=== PATIENT | female | born 1990 | race Caucasian/White ===

== ENCOUNTER 2018-10-16 11:58 | Inpatient (IN) | payer BC ==
[2018-10-16] MEDS ORDERED: BUTORPHANOL TARTRATE 1 MG/ML VIAL IVPB ONE (12:35)
[2018-10-16] MEDS ORDERED: PROMETHAZINE HCL 25 MG/1 ML VIAL IVPUSH ONE (12:35)
--- NOTE | 2018-10-16 12:39 | HP ---
Past Medical History - Admission Chief Complaint: Here for labor induction per [facility] recommendations. History of Present Illness: 28 y/o with SIUP at 38.1 weeks sent up from [facility] office for induction of labor due to IUGR. otherwise uncomplicated. Pt admits to smoking Marijuana until 2 months ago. History Source: Patient, Medical Record - Past Medical History Cardiovascular: No: HTN, MA Pulmonary: No: Asthma, COPD Gastrointestinal: No: Constipation, GERD Hepatobiliary: No: Hepatitis B, Hepatitis C ...: 1 ...Para: 0 ...LMP: 01/22/19 ... Weeks Gestation by Dates: 38.1 ...EDC by Dates: 10/29/18 ...EDC by Sono: 10/29/18 Heme/Onc: No: Anemia Infectious Disease: No: HIV, MRSA, STD's Psych: No: Anxiety, Bipolar, Depression Endocrine: No: Diabetes Mellitus - Past Surgical History Past Surgical History: Yes: None Hx Myomectomy: No Hx Transabdominal Cerclage: No - Alcohol/Substance Use History of Substance Use: reports: Marijuana - Social History Usual Living Arrangement: Yes: With Significant Other ADL: Independent History of Recent Travel: No Home Medications - Allergies Allergies/Adverse Reactions: Allergies Allergy/AdvReac Type Severity Reaction Status Date / Time No Known Allergies Allergy Verified 10/01/18 12:20 - Home Medications Home Medications: Ambulatory Orders Ferrous Sulfate 1 tab PO DAILY 10/01/18 One Daily Tablet 1 tablet PO DAILY 10/01/18 Review of Systems - Review of Systems Constitutional: reports: No Symptoms Eyes: reports: No Symptoms HENT: reports: No Symptoms Neck: reports: No Symptoms Cardiovascular: reports: No Symptoms Respiratory: reports: No Symptoms Gastrointestinal: reports: No Symptoms Genitourinary: reports: No Symptoms Breasts: reports: No Symptoms Reported Musculoskeletal: reports: No Symptoms Integumentary: reports: No Symptoms Neurological: reports: No Symptoms Endocrine: reports: No Symptoms Hematology/Lymphatic: reports: No Symptoms Psychiatric: reports: No Symptoms Physical Exam - Maternity Constitutional: Yes: Well Nourished, No Distress, Calm Eyes: Yes: EOM Intact HENT: Yes: Atraumatic Neck: Yes: Supple Cardiovascular: Yes: Regular Rate and Rhythm Lungs: Clear to auscultation Breast(s): Yes: WNL - Abdominal Exam/OB Fundal Height: 37 Number of Fetuses: Single Presentation: Vertex Contractions: No Category: I Accelerations: Uniform Decelerations: None - Vaginal Exam/OB Vaginal Bleediing: No Dilatation (cm): 1 Effacement (%): 50 Amniotic Membrane Status: Intact Presentation: Vertex/Position Station: -3 - Physical Exam Psychiatric: Yes: Alert, Oriented Problem List - Problems (1) Intrauterine growth restriction affecting care of mother Code(s): O36.5990 - MATERN CARE FOR OTH OR SUSP POOR FETL GRTH, UNSP TRI, UNSP Qualifiers: Fetus number: single or unspecified fetus Trimester: third trimester Qualified Code(s): O36.5930 - Maternal care for other known or suspected poor growth, third trimester, not applicable or unspecified Assessment/Plan Pt admitted for monitoring plan for cervidil induction - desires to wait until family arrives to start induction, will do close monitoring until that time pt aware of plan consents signed
[2018-10-16] MEDS ORDERED: DINOPROSTONE 10 MG VAGINAL SUPPOSITORY VG ONE (12:54)
[2018-10-16 13:26] LABS: BASO % 0.2 % (0-2.0); EOS % 0.8 % (0-4.5); HEMATOCRIT 37.5 % (32.4-45.2); LYMPH % 24.4 % (8-40); MCH 33.9 pg (25.7-33.7); MCHC 34.5 g/dl (32.0-36.0); MEAN CELL VOLUME 98.1 fl (80-96); MEAN PLT VOLUME 8.5 fl (7.5-11.1); MONO % 6.6 % (3.8-10.2); PLATELET COUNT 277 K/MM3 (134-434); RBC 3.83 M/mm3 (3.60-5.2); RDW 13.4 % (11.6-15.6); WHITE BLOOD COUNT 6.9 K/mm3 (4.0-10.0)
[2018-10-16] MEDS ORDERED: DEXTROSE 5%-LACTATED RINGERS 500 ML IV SCH (13:30)
[2018-10-16 13:40] VITALS: BMI 30.7
[2018-10-16 13:42] LABS: INR 0.92 (0.83-1.09); PROTHROMBIN TIME (PATIENT) 10.9 SEC (9.7-13.0)
[2018-10-16 13:44] LABS: ACTIVATED PTT 29.1 SECONDS (25.2-36.5)
[2018-10-16 13:47] LABS: BLOOD UREA NITROGEN 8.4 mg/dL (7-18); CALCIUM 8.8 mg/dL (8.5-10.1); CREATININE 0.6 mg/dL (0.55-1.3); POTASSIUM 4.4 mmol/L (3.5-5.1)
[2018-10-16] MEDS: DEXTROSE 5%-LACTATED RINGERS 1,000 ML IV SCH ×2 (14:00→22:15)
[2018-10-16] MEDS ORDERED: TUBERCULIN PPD 5 TU/0.1ML SYRINGE (IN PATIENT USE ONLY) ID ONE (15:00)
[2018-10-17] MEDS ORDERED: DINOPROSTONE 10 MG VAGINAL SUPPOSITORY VG ONE (00:45)
[2018-10-17] MEDS ORDERED: diphenhydrAMINE HCL 25 MG CAPSULE (FP) PO ONE (03:26)
[2018-10-17] MEDS: diphenhydrAMINE HCL 25 MG CAPSULE (FP) PO SCH ×2 (03:30→23:05)
[2018-10-17] MEDS ORDERED: ACETAMINOPHEN 325 MG TABLET (FP) ONE (04:13)
[2018-10-17] MEDS ORDERED: ACETAMINOPHEN 325 MG TABLET (FP) PO ONE (04:30)
[2018-10-17] MEDS ORDERED: BUTORPHANOL TARTRATE 2 MG/ML VIAL ONE (05:00)
[2018-10-17] MEDS ORDERED: PROMETHAZINE HCL 25 MG/1 ML VIAL ONE (05:00)
[2018-10-17] MEDS: DEXTROSE 5%-LACTATED RINGERS 1,000 ML IV SCH ×3 (05:15→18:53)
--- NOTE | 2018-10-17 05:47 | PN ---
Ante-Partal Exam - Subjective Vital Signs: Vital Signs Temperature 99.9 F H 10/17/18 05:00 Pulse Rate 64 10/17/18 04:00 Respiratory Rate 18 10/17/18 04:00 Blood Pressure 136/77 10/17/18 04:00 O2 Sat by Pulse Oximetry (%) Bleeding: No Headache: No Visual changes: No Right upper quadrant pain: No - Contractions Contractions: No - Exam during Labor Heart Rate: 130 Variability: Moderate Category: I Monitor Accelerations: Present Monitor Decelerations: None Exam: Vaginal Dilatation (cm): 1 Effacement (%): 50 Amniotic Membrane Status: Intact Presentation: Vertex Station: -3 - Assessment/Plan Assessment/Plan: Cervidil placed in posterior fornix cervix 1cm dilated will re evaluate in 12 hours
[2018-10-17] MEDS ORDERED: OXYTOCIN 30 UNITS in 0.9% NS 30 UNIT/500 ML INFUS.BAG IVPB SCH (11:00)
[2018-10-17] MEDS ORDERED: OXYTOCIN 30 UNITS in 0.9% NS 30 UNIT/500 ML INFUS.BAG IVPB ONE (11:00)
[2018-10-17] MEDS ORDERED: BUTORPHANOL TARTRATE 2 MG/ML VIAL IVPUSH PRN (11:03)
--- NOTE | 2018-10-17 11:03 | PN ---
Ante-Partal Exam - Subjective Subjective: Pt doing well no pain does not desire epidural Vital Signs: Vital Signs Temperature 98.1 F 10/17/18 10:00 Pulse Rate 59 L 10/17/18 10:00 Respiratory Rate 20 10/17/18 10:00 Blood Pressure 142/69 10/17/18 10:00 O2 Sat by Pulse Oximetry (%) Bleeding: No Headache: No Visual changes: No Right upper quadrant pain: No - Contractions Contractions: No Regularity: Irritability Intensity: Mild Monitor Mode: External - Exam during Labor Heart Rate: 155 Variability: Moderate Heart Rate Location: [facility] Category: I Monitor Accelerations: Present Monitor Decelerations: None Exam: Vaginal Dilatation (cm): 2 Effacement (%): 70 Amniotic Membrane Status: Intact Presentation: Vertex Station: -1 - Intrapartum Hemorrhage Risk Medium Risk Factors: None High Risk Factors: None Risk Score: 0 Risk Level: Low Risk - Assessment/Plan Assessment/Plan: iup @ 38.2 week Cat 1 IUGR sp cervidil -had prolong dec tracing cat 1 - pt and mother ok for pitocin Plan Advised pitocin due to favorable cervix and Cat 1 tracing stadol prn
[2018-10-17] MEDS ORDERED: PROMETHAZINE HCL 25 MG/1 ML VIAL IVPUSH PRN (11:04)
[2018-10-17] MEDS ORDERED: NALOXONE HCL 0.4 MG/ML VIAL IVPUSH PRN (18:57)
[2018-10-17] MEDS ORDERED: FENTANYL/BUPIVACAINE/NS/PF - PCEA - 50 ML DISP.SYRIN EP ONE (18:59)
[2018-10-17] MEDS ORDERED: BUPIVACAINE HCL/PF 0.25% (2.5MG/ML) 10 ML VIAL ONE (18:59)
[2018-10-17] MEDS ORDERED: ELECTROLYTE-148 SOLN 1,000 ML IV SCH (19:00)
[2018-10-17] MEDS ORDERED: FENTANYL/BUPIVACAINE/NS/PF - PCEA - 50 ML DISP.SYRIN EP SCH (19:00)
[2018-10-17] MEDS ORDERED: OXYTOCIN 20 UNITS in 0.9% NS 20 UNIT/1,000 ML INFUS.BAG IV ONE (19:30)
[2018-10-17] MEDS ORDERED: LIDOCAINE HCL 1% PRESERVATIVE FREE - 30ML VIAL ONE (19:30)
[2018-10-17] MEDS ORDERED: WITCH HAZEL 50% (TUCKS) 40 PAD/JAR PAD TP PRN (22:21)
[2018-10-17] MEDS ORDERED: BISACODYL 10 MG SUPP.RECT PR PRN (22:21)
[2018-10-17] MEDS ORDERED: METHYLERGONOVINE MALEATE 0.2 MG/1 ML AMP IM PRN (22:21)
[2018-10-17] MEDS ORDERED: BENZOCAINE 28 GM HEMORRHOIDAL OINTMENT PR PRN (22:21)
--- NOTE | 2018-10-17 22:21 | PN ---
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
[2018-10-17] MEDS ORDERED: OXYTOCIN 20 UNITS in 0.9% NS 20 UNIT/1,000 ML INFUS.BAG IV SCH (22:30)
[2018-10-17] MEDS: ACETAMINOPHEN 325 MG TABLET (FP) PO PRN (22:40)
[2018-10-17] MEDS: BENZOCAINE 20% 57 GM BOTTLE TP PRN (22:41)
[2018-10-17] MEDS: IBUPROFEN 600 MG TABLET (FP) PO PRN (22:41)
[2018-10-18] MEDS: IBUPROFEN 600 MG TABLET (FP) PO PRN ×4 (02:36→20:14)
[2018-10-18] MEDS: ACETAMINOPHEN 325 MG TABLET (FP) PO PRN ×4 (02:38→20:14)
[2018-10-18 08:31] LABS: BASO % 0.2 % (0-2.0); EOS % 0.4 % (0-4.5); HEMATOCRIT 31.7 % (32.4-45.2); HEMOGLOBIN 10.7 GM/dL (10.7-15.3); LYMPH % 18.9 % (8-40); MCH 33.3 pg (25.7-33.7); MCHC 33.9 g/dl (32.0-36.0); MEAN CELL VOLUME 98.1 fl (80-96); MEAN PLT VOLUME 8.8 fl (7.5-11.1); MONO % 7.7 % (3.8-10.2); NEUT % 72.8 % (42.8-82.8); PLATELET COUNT 212 K/MM3 (134-434); RBC 3.23 M/mm3 (3.60-5.2); RDW 13.1 % (11.6-15.6); WHITE BLOOD COUNT 11.4 K/mm3 (4.0-10.0)
[2018-10-18] MEDS ORDERED: DIPHTH,PERTUSS(ACELL),TET 0.5 ML DISP.SYRIN IM ONE (10:00)
--- NOTE | 2018-10-18 12:39 | PN ---
Post Note - Post Date of Delivery: 10/17/18 Post Day: 1 Vital Signs: Vital Signs - 24 hr 10/17/18 10/17/18 10/17/18 13:00 14:00 15:00 Temperature 98.4 F 98.4 F 98.7 F Pulse Rate 58 L 57 L 51 L Respiratory 20 20 20 Rate Blood Pressure 129/78 138/60 128/78 O2 Sat by Pulse Oximetry (%) 10/17/18 10/17/18 10/17/18 16:00 17:00 18:00 Temperature 98.5 F 99.1 F Pulse Rate 55 L 59 L 63 Respiratory 20 20 20 Rate Blood Pressure 130/76 149/78 149/88 O2 Sat by Pulse Oximetry (%) 10/17/18 10/17/18 10/17/18 19:20 19:25 19:30 Temperature Pulse Rate 62 58 L 66 Respiratory 21 H 20 19 Rate Blood Pressure 129/73 113/69 111/94 O2 Sat by Pulse 100 99 99 Oximetry (%) 10/17/18 10/17/18 10/17/18 20:30 20:45 21:00 Temperature Pulse Rate 56 L 60 59 L Respiratory 18 18 18 Rate Blood Pressure 111/66 125/79 129/62 O2 Sat by Pulse 100 100 100 Oximetry (%) 10/17/18 10/17/18 10/17/18 21:15 21:30 22:32 Temperature 98.1 F 98.0 F 97.9 F Pulse Rate 64 60 61 Respiratory 18 18 18 Rate Blood Pressure 117/63 120/64 124/67 O2 Sat by Pulse 100 100 Oximetry (%) 10/18/18 10/18/18 06:03 08:00 Temperature 98.6 F 97.7 F Pulse Rate 64 84 Respiratory 20 20 Rate Blood Pressure 137/67 124/52 L O2 Sat by Pulse Oximetry (%) Labs: Laboratory Results - last 24 hr 10/18/18 07:00 WBC 11.4 H RBC 3.23 L Hgb 10.7 Hct 31.7 L D MCV 98.1 H MCH 33.3 MCHC 33.9 RDW 13.1 Plt Count 212 D MPV 8.8 Absolute Neuts (auto) 8.3 H Neutrophils % 72.8 Lymphocytes % 18.9 D Monocytes % 7.7 Eosinophils % 0.4 Basophils % 0.2 Nucleated RBC % 0 - Subjective Subjective: No Complaints - Objective Breast: Not engorged Abdomen: Soft, Non-tender Uterus: Fundus firm Vagina: Scant lochia Extremities: Non-tender - Assessment/Plan (1) Normal vaginal delivery Assessment: S/P Normal Plan: Routine Care
[2018-10-18] MEDS: diphenhydrAMINE HCL 25 MG CAPSULE (FP) PO SCH (23:03)
[2018-10-19 08:39] VITALS: BP 129/88; PULSE 74; TEMP 98.7
[2018-10-19] MEDS: BENZOCAINE 20% 57 GM BOTTLE TP PRN (12:33)
--- NOTE | 2018-10-20 19:53 | DS ---
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: Vital Signs Temperature 98.7 F 10/19/18 07:45 Pulse Rate 74 10/19/18 07:45 Respiratory Rate 20 10/19/18 07:45 Blood Pressure 129/88 10/19/18 07:45 O2 Sat by Pulse Oximetry (%) 100 10/17/18 21:30 Constitutional: Yes: Well Nourished, No Distress Neck: Yes: WNL Cardiovascular: Yes: WNL Respiratory: Yes: WNL, Regular, CTA Bilaterally Gastrointestinal: Yes: WNL, Soft ....Post : Yes: Uterus firm, Uterus non-tender Breast(s): Yes: WNL Neurological: Yes: WNL, Alert, Oriented Psychiatric: Yes: WNL, Alert, Oriented Labs: CBC, BMP 10/18/18 07:00 10/16/18 12:55 Delivery - Delivery Vaginal Delivery: No Problems (OA position Shoulders delivered w/o complications ) Type of Anesthesia: Local, Epidural Episiotomy/Laceration: Midline EBL (cc): 250 Delivery, Single - Stages of Labor Date 1st Stage Initiatied: 10/17/18 Time 1st Stage Initiated: 17:15 Date 2nd Stage Initiated: 10/17/18 Time 2nd Stage Initiated: 19:25 Date of Delivery: 10/17/18 Time of Delivery: 19:36 Time Placenta Delivered: 19:44 Placenta: Yes: Spontaneous - 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 to be seen in 4 to 6 weeks. If fever, pain, or heavy bleeding, call [facility] Referrals: Mireya Tran MD [Staff Physician] - Disposition: HOME - Home Medications Comprehensive Discharge Medication List: Ambulatory Orders Ferrous Sulfate 1 tab PO DAILY 10/01/18 One Daily Tablet 1 tablet PO DAILY 10/01/18 Ibuprofen [Motrin -] 600 mg PO TID #21 tablet 10/17/18
== END 2018-10-19 13:30 | disposition home or self-care (01) | DRG 807 ==
LOC: JDEL 11:58 → JLDR 12:15 → J3W 10-17 22:08
PROVIDERS: ADMIT Obstetrics & Gynecology; ATTEND Obstetrics & Gynecology
PROC: 3E0P7VZ Introduction of Hormone into Female Reproductive, Via Natural or Artificial Opening (ICD-10-PCS; 2018-10-16)
PROC: 10E0XZZ Delivery of Products of Conception, External Approach (ICD-10-PCS; principal; 2018-10-17)
PROC: 0W8NXZZ Division of Female Perineum, External Approach (ICD-10-PCS; 2018-10-17)
DX: O36.5930 Maternal care for other known or suspected poor fetal growth, third trimester, not applicable or unspecified (principal); Z37.0 Single live birth; Z3A.38 38 weeks gestation of pregnancy
CPT/HCPCS: 36415; 59409; 80048; 85025; 85610; 85730; 86593; 86850; 86900; 86901; 90715